=== PATIENT | female | born 1970 | race African-American/Black ===

== ENCOUNTER 2021-07-30 02:17 | Emergency (ER) | payer BC ==
[2021-07-30 02:25] VITALS: BP 139/88; PULSE 110; TEMP 98.8; BMI 27.5
[2021-07-30] MEDS ORDERED: morphine SULFATE IMMEDIATE RELEASE 30 MG TAB PO ONE ×2 (02:31→05:18)
[2021-07-30] MEDS ORDERED: morphine SULFATE IMMEDIATE RELEASE 30 MG TAB ONE ×2 (02:33→05:16)
== END 2021-07-30 05:20 | disposition home or self-care (01) ==
LOC: FER 02:17
DX: S82.142A Displaced bicondylar fracture of left tibia, initial encounter for closed fracture (principal); W19.XXXA Unspecified fall, initial encounter; Y92.9 Unspecified place or not applicable
CPT/HCPCS: 73560-TC-LT-FY; 73660-TC-FY; 73700-TC-RT; 99284-25